=== PATIENT | female | born 1965 | race Caucasian/White ===

== ENCOUNTER 2017-05-04 12:09 | Emergency (ER) | payer SELFPAY ==
[~2017-05-04] VITALS: Ht 165.1 cm; Wt 64.5 kg
[2017-05-04] MEDS ORDERED: ALBUTEROL/IPRATROPIUM 2.5MG/0.5MG, 3 ML NPPB ONE ×2 (13:30→15:00)
[2017-05-04] MEDS ORDERED: SODIUM CHLORIDE 0.9% 1,000ML IVBOLUS ONE ×2 (13:30→14:00)
[2017-05-04] MEDS ORDERED: SODIUM CHLORIDE FLUSH 10ML SYR IVF ONE (13:30)
[2017-05-04 13:47] LABS: ASPARTATE AMINO TRANSFERASE 70 U/L (15-37); BLOOD UREA NITROGEN 17 mg/dL (7-18)
[2017-05-04 13:52] LABS: IS PT STATUS REG ER OR PRE ER? YES
[2017-05-04] MEDS ORDERED: ALBUTEROL/IPRATROPIUM 2.5MG/0.5MG, 3 ML ONE ×2 (13:57→15:15)
[2017-05-04] MEDS ORDERED: methylPREDNISolone SOD SUCC 125 MG/2 ML IVP ONE (14:00)
[2017-05-04] MEDS ORDERED: methylPREDNISolone SOD SUCC 125 MG/2 ML ONE (14:16)
[2017-05-04 17:18] VITALS: BP 114/68
== END 2017-05-04 17:22 | disposition home or self-care (01) ==
LOC: ED 14:12
DX: J20.8 Acute bronchitis due to other specified organisms (principal); I95.9 Hypotension, unspecified
CPT/HCPCS: 36415; 71010; 80053; 84484; 85025; 93005; 94640; 96361; 96374; 99285; J2930; J7030; J7620